=== PATIENT | male | born 1955 | race Caucasian/White ===

== ENCOUNTER 2018-02-03 05:48 | Inpatient (IN) | payer MEDICAID, OTHER ==
[~2018-02-03] VITALS: Ht 182.9 cm; Wt 93.2 kg
[~2018-02-03 05:48] MED LIST: FLUO-191 PO; FURO40 PO
[2018-02-03 06:03] LABS: GLUCOSE,POINT OF CARE 145 MG/DL (70-110)
[2018-02-03] MEDS ORDERED: FURO20 PO (06:10)
[2018-02-03] MEDS ORDERED: OXYC20 PO (06:10)
[2018-02-03 06:49] LABS: ANION GAP 19 mmol/L (8-16); CALCIUM, TOTAL 8.9 mg/dL (8.8-10.5); CARBON DIOXIDE 17 mmol/L (22-29); CHLORIDE 104 mmol/L (98-107); CREATININE 1.32 mg/dL (0.60-1.30); GLOMERULAR FILTR. RATE CALC 55 mL/min (>60); GLUCOSE,RANDOM 154 mg/dL (70-110); POTASSIUM 4.5 mmol/L (3.5-5.1); PROTHROMBIN TIME 20.7 SEC (9.4-11.6); SODIUM SERUM 140 mmol/L (136-145); UREA NITROGEN, BLOOD 16 mg/dL (7-18)
[2018-02-03 06:51] LABS: BASOPHILS % (AUTO) 0.4 % (0.0-2.0); EOSINOPHILS % (AUTO) 0.3 % (1.0-6.0); HEMATOCRIT 26.6 % (41-53); HEMOGLOBIN 8.8 g/dL (13.5-17.5); LYMPHOCYTES # (AUTO) 0.7 K/uL (1.0-4.8); LYMPHOCYTES % (AUTO) 11.8 % (22.0-44.0); MEAN CORPUSCULAR VOLUME 103 fL (80-100); MONOCYTES # (AUTO) 0.5 K/uL (0.1-1.0); MONOCYTES % (AUTO) 8.6 % (2.0-9.0); NEUTROPHILS # (AUTO) 4.7 K/uL (1.8-7.7); NEUTROPHILS % (AUTO) 78.9 % (40.0-70.0); RED BLOOD CELL COUNT(AUTO) 2.58 MIL/uL (4.50-5.90); RED CELL DISTRIBUTION WIDTH 16.9 % (11.5-14.5)
[2018-02-03 06:56] LABS: ACETAMINOPHEN 13 mcg/mL (10-30); ALANINE AMINOTRANSFERASE 24 U/L (12-78); ALBUMIN 4.3 g/dL (3.4-5.0); ALKALINE PHOSPHATASE 180 U/L (46-116); ASPARTATE AMINOTRANSFERASE 64 U/L (15-37); BILIRUBIN,TOTAL 11.1 mg/dL (0.1-1.0)
[2018-02-03 07:09] LABS: SALICYLATE < 2.8 mg/dL (2.8-20.0)
[2018-02-03] MEDS ORDERED: LACTULOSE 20 GM/30 ML SOLUTION UDCUP PO ONE (07:15)
[2018-02-03 07:18] LABS: PLATELET COUNT (AUTO) 114 K/uL (150-450)
[2018-02-03 08:10] LABS: AMPHET/METH SCREEN,URINE NEGATIVE (NEGATIVE); BARBITURATE SCREEN, URINE NEGATIVE (NEGATIVE); BENZODIAZEPINES SCREEN,URINE NEGATIVE (NEGATIVE); CANNABINOID SCREEN,URINE NEGATIVE (NEGATIVE); COCAINE SCREEN,URINE NEGATIVE (NEGATIVE); METHADONE SCREEN, URINE NEGATIVE (NEGATIVE); OPIATE SCREEN,URINE POSITIVE (NEGATIVE)
[2018-02-03 08:11] LABS: PHENCYCLIDINE SCREEN,URINE NEGATIVE (NEGATIVE)
[2018-02-03 08:19] VITALS: BP 152/81
[2018-02-03] MEDS ORDERED: HYDROCODONE/ACETAMINOPHEN 5-325 MG TABLET PO PRN (11:15)
[2018-02-03] MEDS ORDERED: BISACODYL 10 MG RECTAL RECTAL SUPPOSITORY PR PRN (11:15)
[2018-02-03] MEDS ORDERED: MAGNESIUM HYDROXIDE SUSPENSION 30 ML UDCUP PO PRN (11:15)
[2018-02-03] MEDS ORDERED: ZOLPIDEM TARTRATE 5 MG TABLET PO PRN (11:15)
[2018-02-03] MEDS: ONDANSETRON HCL 4 MG/2 ML VIAL IVP PRN ×3 (11:43→23:28)
[2018-02-03] MEDS ORDERED: MAGNESIUM SULFATE 2 GM, MVI, ADULT NO.1 WITH VIT K 10 ML, THIAMINE HCL 100 MG, FOLIC AC... IV ONE ×5 (12:15)
[2018-02-03 12:53] LABS: SALICYLATE < 2.8 mg/dL (2.8-20.0)
[2018-02-03 13:09] VITALS: BP 143/80
[2018-02-03 14:50] LABS: ACETAMINOPHEN < 2 mcg/mL (10-30)
[2018-02-03 17:40] VITALS: BP 137/72
[2018-02-03] MEDS: LACTULOSE 20 GM/30 ML SOLUTION UDCUP PO SCH (20:20)
[2018-02-03] MEDS: DOCUSATE SODIUM 100 MG CAPSULE PO SCH (20:20)
[2018-02-03 20:30] VITALS: BP 121/63
[2018-02-04] VITALS (11 sets, daily range): BP systolic 106–127; BP diastolic 55–72
[2018-02-04] MEDS: MORPHINE SULFATE 4 MG/ML SYRINGE IVP PRN ×3 (00:19→17:21)
[2018-02-04] MEDS: ONDANSETRON HCL 4 MG/2 ML VIAL IVP PRN ×3 (05:30→21:16)
[2018-02-04] MEDS: FUROSEMIDE 20 MG TABLET PO SCH (08:02)
[2018-02-04] MEDS: LACTULOSE 20 GM/30 ML SOLUTION UDCUP PO SCH ×2 (08:02→20:42)
[2018-02-04] MEDS: PANTOPRAZOLE SODIUM 40 MG DR TABLET PO SCH (08:02)
[2018-02-04] MEDS: DOCUSATE SODIUM 100 MG CAPSULE PO SCH ×2 (08:02→20:42)
[2018-02-04] MEDS ORDERED: CYANOCOBALAMIN 1,000 MCG/ML VIAL IM ONE (16:00)
[2018-02-04] MEDS ORDERED: LORazepam 2 MG TABLET PO PRN (16:00)
[2018-02-04] MEDS ORDERED: LOPERAMIDE HCL 2 MG CAPSULE PO PRN (16:00)
[2018-02-04] MEDS: THIAMINE HCL 100 MG TABLET PO SCH (20:42)
[2018-02-05] VITALS (8 sets, daily range): BP systolic 113–134; BP diastolic 56–76
[2018-02-05] MEDS: ONDANSETRON HCL 4 MG/2 ML VIAL IVP PRN (05:44)
[2018-02-05] MEDS ORDERED: LORazepam 2 MG TABLET PO PRN (07:00)
[2018-02-05] MEDS: FOLIC ACID 1 MG TABLET PO SCH (08:23)
[2018-02-05] MEDS: DOCUSATE SODIUM 100 MG CAPSULE PO SCH ×2 (08:24→21:56)
[2018-02-05] MEDS: THIAMINE HCL 100 MG TABLET PO SCH ×2 (08:24→21:56)
[2018-02-05] MEDS: SERTRALINE HCL 50 MG TABLET PO SCH (08:24)
[2018-02-05] MEDS: FUROSEMIDE 20 MG TABLET PO SCH (08:24)
[2018-02-05] MEDS: MULTIVITAMINS WITH MINERALS, THERAPEUTIC TABLET PO SCH (08:24)
[2018-02-05] MEDS: PANTOPRAZOLE SODIUM 40 MG DR TABLET PO SCH (08:25)
[2018-02-05] MEDS: LACTULOSE 20 GM/30 ML SOLUTION UDCUP PO SCH ×2 (08:25→21:56)
[2018-02-05] MEDS: LORazepam 2 MG TABLET PO SCH ×4 (08:25→21:55)
[2018-02-05] MEDS: ACETAMINOPHEN 325 MG TABLET PO PRN (21:55)
[2018-02-06 04:00] VITALS: BP 131/63
[2018-02-06] MEDS: ACETAMINOPHEN 325 MG TABLET PO PRN ×3 (05:29→13:00)
[2018-02-06 07:21] VITALS: BP 128/77
[2018-02-06] MEDS: LORazepam 2 MG TABLET PO SCH ×4 (07:51→20:03)
[2018-02-06] MEDS: FOLIC ACID 1 MG TABLET PO SCH (07:51)
[2018-02-06] MEDS: LACTULOSE 20 GM/30 ML SOLUTION UDCUP PO SCH ×2 (07:51→20:03)
[2018-02-06] MEDS: PANTOPRAZOLE SODIUM 40 MG DR TABLET PO SCH (07:52)
[2018-02-06] MEDS: FUROSEMIDE 20 MG TABLET PO SCH (07:52)
[2018-02-06] MEDS: MULTIVITAMINS WITH MINERALS, THERAPEUTIC TABLET PO SCH (07:52)
[2018-02-06] MEDS: SERTRALINE HCL 50 MG TABLET PO SCH (07:52)
[2018-02-06] MEDS: THIAMINE HCL 100 MG TABLET PO SCH ×2 (07:52→20:03)
[2018-02-06] MEDS: DOCUSATE SODIUM 100 MG CAPSULE PO SCH ×2 (07:53→20:03)
[2018-02-06 13:00] VITALS: BP 136/75
[2018-02-06 20:12] VITALS: BP 120/59
[2018-02-07] VITALS (7 sets, daily range): BP systolic 108–153; BP diastolic 53–76
[2018-02-07] MEDS ORDERED: LORazepam 1 MG TABLET PO PRN (07:00)
[2018-02-07] MEDS: FOLIC ACID 1 MG TABLET PO SCH (08:14)
[2018-02-07] MEDS: DOCUSATE SODIUM 100 MG CAPSULE PO SCH ×2 (08:14→20:09)
[2018-02-07] MEDS: PANTOPRAZOLE SODIUM 40 MG DR TABLET PO SCH (08:14)
[2018-02-07] MEDS: LACTULOSE 20 GM/30 ML SOLUTION UDCUP PO SCH ×2 (08:14→20:09)
[2018-02-07] MEDS: LORazepam 1 MG TABLET PO SCH ×3 (08:14→17:12)
[2018-02-07] MEDS: MULTIVITAMINS WITH MINERALS, THERAPEUTIC TABLET PO SCH (08:14)
[2018-02-07] MEDS: FUROSEMIDE 20 MG TABLET PO SCH (08:15)
[2018-02-07] MEDS: THIAMINE HCL 100 MG TABLET PO SCH ×2 (08:15→20:09)
[2018-02-07] MEDS: SERTRALINE HCL 50 MG TABLET PO SCH (08:17)
[2018-02-07] MEDS: ACETAMINOPHEN 325 MG TABLET PO PRN (08:19)
[2018-02-08] VITALS (18 sets, daily range): BP systolic 112–140; BP diastolic 61–79
[2018-02-08] MEDS: LORazepam 1 MG TABLET PO SCH (00:12)
[2018-02-08] MEDS ORDERED: LORazepam 1 MG TABLET PO PRN (07:00)
[2018-02-08] MEDS: FOLIC ACID 1 MG TABLET PO SCH (08:05)
[2018-02-08] MEDS: MULTIVITAMINS, THERAPEUTIC TABLET PO SCH (08:05)
[2018-02-08] MEDS: THIAMINE HCL 100 MG TABLET PO SCH ×2 (08:05→20:31)
[2018-02-08] MEDS: PANTOPRAZOLE SODIUM 40 MG DR TABLET PO SCH (08:05)
[2018-02-08] MEDS: DOCUSATE SODIUM 100 MG CAPSULE PO SCH ×2 (08:06→21:20)
[2018-02-08] MEDS: FUROSEMIDE 20 MG TABLET PO SCH (08:06)
[2018-02-08] MEDS: SERTRALINE HCL 50 MG TABLET PO SCH (08:06)
[2018-02-08] MEDS: LACTULOSE 20 GM/30 ML SOLUTION UDCUP PO SCH ×2 (08:06→21:20)
[2018-02-08 11:44] LABS: BASOPHILS % (AUTO) 1.1 % (0.0-2.0); EOSINOPHILS % (AUTO) 4.2 % (1.0-6.0); HEMOGLOBIN 7.1 g/dL (13.5-17.5); LYMPHOCYTES # (AUTO) 0.8 K/uL (1.0-4.8); LYMPHOCYTES % (AUTO) 25.1 % (22.0-44.0); MEAN CORPUSCULAR HEMOGLOBIN 35.5 pg (26.0-34.0); MEAN CORPUSCULAR HGB CONC 36.2 G/dL (31.0-37.0); MEAN CORPUSCULAR VOLUME 98 fL (80-100); MONOCYTES # (AUTO) 0.6 K/uL (0.1-1.0); MONOCYTES % (AUTO) 19.3 % (2.0-9.0); NEUTROPHILS # (AUTO) 1.5 K/uL (1.8-7.7); NEUTROPHILS % (AUTO) 50.3 % (40.0-70.0); RED CELL DISTRIBUTION WIDTH 15.9 % (11.5-14.5)
[2018-02-08 11:55] LABS: CALCIUM, TOTAL 8.9 mg/dL (8.8-10.5); CREATININE 1.34 mg/dL (0.60-1.30); POTASSIUM 3.7 mmol/L (3.5-5.1)
[2018-02-08 12:03] LABS: ALBUMIN 3.5 g/dL (3.4-5.0); BILIRUBIN,TOTAL 9.4 mg/dL (0.1-1.0); TOTAL PROTEIN, SERUM 6.5 g/dL (6.4-8.2)
[2018-02-08 12:29] LABS: HEMATOCRIT 19.6 % (41-53)
[2018-02-08 12:57] LABS: PLATELET COUNT (AUTO) 92 K/uL (150-450)
[2018-02-08] MEDS ORDERED: SODIUM CHLORIDE 0.9% 250 ML IV ONE ×2 (13:33→21:30)
[2018-02-08] MEDS: OCTREOTIDE ACETATE 500 MCG in DEXTROSE 5%-WATER 97.5 ML IV SCH (17:53)
[2018-02-08] MEDS ORDERED: SODIUM CHLORIDE 0.9% 200 ML ONE (17:54)
[2018-02-08] MEDS: PHYTONADIONE 10 MG/1 ML AMP SQ SCH (21:17)
[2018-02-08] MEDS: PANTOPRAZOLE SODIUM 80 MG in SODIUM CHLORIDE 0.9% 100 ML IV SCH (23:55)
[2018-02-09] MEDS: OCTREOTIDE ACETATE 500 MCG in DEXTROSE 5%-WATER 97.5 ML IV SCH (03:07)
[2018-02-09 04:53] VITALS: BP 127/67
[2018-02-09 07:08] VITALS: BP 128/67
[2018-02-09] MEDS: MULTIVITAMINS, THERAPEUTIC TABLET PO SCH (09:00)
[2018-02-09] MEDS: FOLIC ACID 1 MG TABLET PO SCH (09:00)
[2018-02-09] MEDS: DOCUSATE SODIUM 100 MG CAPSULE PO SCH ×2 (09:00→20:27)
[2018-02-09] MEDS: THIAMINE HCL 100 MG TABLET PO SCH ×2 (09:00→20:28)
[2018-02-09] MEDS: LACTULOSE 20 GM/30 ML SOLUTION UDCUP PO SCH ×2 (09:00→20:27)
[2018-02-09] MEDS: SERTRALINE HCL 50 MG TABLET PO SCH (09:00)
[2018-02-09] MEDS: FUROSEMIDE 20 MG TABLET PO SCH (09:00)
[2018-02-09] MEDS: MORPHINE SULFATE 4 MG/ML SYRINGE IVP PRN (09:17)
[2018-02-09] MEDS: PANTOPRAZOLE SODIUM 80 MG in SODIUM CHLORIDE 0.9% 100 ML IV SCH (10:35)
[2018-02-09] MEDS ORDERED: SODIUM CHLORIDE 0.9% 1,000 ML IV ONE ×2 (11:00)
[2018-02-09 13:05] LABS: BASOPHILS % (AUTO) 1.6 % (0.0-2.0); EOSINOPHILS % (AUTO) 6.3 % (1.0-6.0); HEMATOCRIT 21.3 % (41-53); HEMOGLOBIN 7.5 g/dL (13.5-17.5); LYMPHOCYTES # (AUTO) 1.2 K/uL (1.0-4.8); LYMPHOCYTES % (AUTO) 33.7 % (22.0-44.0); MEAN CORPUSCULAR HEMOGLOBIN 34.4 pg (26.0-34.0); MEAN CORPUSCULAR HGB CONC 35.4 G/dL (31.0-37.0); MEAN CORPUSCULAR VOLUME 97 fL (80-100); MONOCYTES # (AUTO) 0.4 K/uL (0.1-1.0); MONOCYTES % (AUTO) 12.7 % (2.0-9.0); NEUTROPHILS # (AUTO) 1.6 K/uL (1.8-7.7); NEUTROPHILS % (AUTO) 45.7 % (40.0-70.0); PLATELET COUNT (AUTO) 84 K/uL (150-450); RED BLOOD CELL COUNT(AUTO) 2.19 MIL/uL (4.50-5.90); RED CELL DISTRIBUTION WIDTH 18.7 % (11.5-14.5)
[2018-02-09 13:17] LABS: ALBUMIN 3.5 g/dL (3.4-5.0); BILIRUBIN,TOTAL 10.8 mg/dL (0.1-1.0); CALCIUM, TOTAL 8.4 mg/dL (8.8-10.5); CREATININE 1.31 mg/dL (0.60-1.30); POTASSIUM 4.2 mmol/L (3.5-5.1); TOTAL PROTEIN, SERUM 6.5 g/dL (6.4-8.2)
[2018-02-09 13:18] LABS: PROTHROMBIN TIME 20.6 SEC (9.4-11.6)
[2018-02-09 13:45] VITALS: BP 124/69
[2018-02-09 20:18] VITALS: BP 131/66
[2018-02-09] MEDS: PHYTONADIONE 10 MG/1 ML AMP SQ SCH (20:28)
[2018-02-09] MEDS: PANTOPRAZOLE SODIUM 40 MG/VIAL IVP SCH (20:29)
[2018-02-09] MEDS: RIFAXIMIN 550 MG TABLET PO SCH (21:00)
[2018-02-09 23:13] VITALS: BP 135/80
[2018-02-10 04:30] VITALS: BP 129/79
[2018-02-10] MEDS ORDERED: MIDAZOLAM HCL 2 MG/2 ML VIAL IVP ONE (05:39)
[2018-02-10] MEDS ORDERED: PROPOFOL 1% 20 ML VIAL IVP ONE (05:39)
[2018-02-10 07:07] VITALS: BP 120/70
[2018-02-10] MEDS: LACTULOSE 20 GM/30 ML SOLUTION UDCUP PO SCH (08:35)
[2018-02-10] MEDS: PANTOPRAZOLE SODIUM 40 MG/VIAL IVP SCH (08:35)
[2018-02-10] MEDS: FOLIC ACID 1 MG TABLET PO SCH (08:36)
[2018-02-10] MEDS: FUROSEMIDE 20 MG TABLET PO SCH (08:36)
[2018-02-10] MEDS: THIAMINE HCL 100 MG TABLET PO SCH (08:36)
[2018-02-10] MEDS: SERTRALINE HCL 50 MG TABLET PO SCH (08:36)
[2018-02-10] MEDS: MULTIVITAMINS, THERAPEUTIC TABLET PO SCH (08:36)
[2018-02-10] MEDS: DOCUSATE SODIUM 100 MG CAPSULE PO SCH (08:39)
[2018-02-10] MEDS: RIFAXIMIN 550 MG TABLET PO SCH (09:00)
[2018-02-10] MEDS: MORPHINE SULFATE 4 MG/ML SYRINGE IVP PRN ×2 (11:07→18:49)
[2018-02-10 11:17] VITALS: BP 121/74
[2018-02-10 15:54] VITALS: BP 124/60
[2018-02-10 16:15] LABS: BASOPHILS % (AUTO) 1.6 % (0.0-2.0); EOSINOPHILS % (AUTO) 5.5 % (1.0-6.0); HEMATOCRIT 21.7 % (41-53); HEMOGLOBIN 7.5 g/dL (13.5-17.5); LYMPHOCYTES # (AUTO) 0.9 K/uL (1.0-4.8); LYMPHOCYTES % (AUTO) 26.5 % (22.0-44.0); MEAN CORPUSCULAR HEMOGLOBIN 33.8 pg (26.0-34.0); MEAN CORPUSCULAR HGB CONC 34.6 G/dL (31.0-37.0); MEAN CORPUSCULAR VOLUME 98 fL (80-100); MONOCYTES # (AUTO) 0.6 K/uL (0.1-1.0); MONOCYTES % (AUTO) 17.2 % (2.0-9.0); NEUTROPHILS # (AUTO) 1.7 K/uL (1.8-7.7); NEUTROPHILS % (AUTO) 49.2 % (40.0-70.0); RED BLOOD CELL COUNT(AUTO) 2.23 MIL/uL (4.50-5.90); RED CELL DISTRIBUTION WIDTH 18.2 % (11.5-14.5)
[2018-02-10 16:29] LABS: ANION GAP 6 mmol/L (8-16); CALCIUM, TOTAL 8.4 mg/dL (8.8-10.5); CARBON DIOXIDE 28 mmol/L (22-29); CHLORIDE 103 mmol/L (98-107); CREATININE 1.06 mg/dL (0.60-1.30); GLOMERULAR FILTR. RATE CALC > 60 mL/min (>60); GLUCOSE,RANDOM 104 mg/dL (70-110); POTASSIUM 3.8 mmol/L (3.5-5.1); SODIUM SERUM 137 mmol/L (136-145); UREA NITROGEN, BLOOD 10 mg/dL (7-18)
[2018-02-10 16:32] LABS: PLATELET COUNT (AUTO) 79 K/uL (150-450)
[2018-02-10 16:35] LABS: ALANINE AMINOTRANSFERASE 22 U/L (12-78); ALBUMIN 3.4 g/dL (3.4-5.0); ALKALINE PHOSPHATASE 120 U/L (46-116); ASPARTATE AMINOTRANSFERASE 52 U/L (15-37); BILIRUBIN,TOTAL 10.8 mg/dL (0.1-1.0); TOTAL PROTEIN, SERUM 6.5 g/dL (6.4-8.2)
[2018-02-10 19:19] VITALS: BP 131/75
== END 2018-02-10 19:44 | DRG 812 ==
LOC: EMS 05:48 → 6N 07:42
PROVIDERS: ADMIT Internal Medicine; ATTEND Internal Medicine
PROC: 30233N1 Transfusion of Nonautologous Red Blood Cells into Peripheral Vein, Percutaneous Approach (ICD-10-PCS; principal; 2018-02-08)
PROC: 30233L1 Transfusion of Nonautologous Fresh Plasma into Peripheral Vein, Percutaneous Approach (ICD-10-PCS; 2018-02-08)
PROC: 30233K1 Transfusion of Nonautologous Frozen Plasma into Peripheral Vein, Percutaneous Approach (ICD-10-PCS; 2018-02-08)
PROC: 0DJ08ZZ Inspection of Upper Intestinal Tract, Via Natural or Artificial Opening Endoscopic (ICD-10-PCS; 2018-02-09)
DX: T40.2X2A Poisoning by other opioids, intentional self-harm, initial encounter (principal); D68.9 Coagulation defect, unspecified; K76.6 Portal hypertension; F33.2 Major depressive disorder, recurrent severe without psychotic features; D69.6 Thrombocytopenia, unspecified; I50.9 Heart failure, unspecified; K92.2 Gastrointestinal hemorrhage, unspecified; F10.239 Alcohol dependence with withdrawal, unspecified; K70.30 Alcoholic cirrhosis of liver without ascites; K72.90 Hepatic failure, unspecified without coma; B19.20 Unspecified viral hepatitis C without hepatic coma; D64.9 Anemia, unspecified; K31.89 Other diseases of stomach and duodenum; Y90.3 Blood alcohol level of 60-79 mg/100 ml; Z79.899 Other long term (current) drug therapy; Z72.89 Other problems related to lifestyle; Y92.098 Other place in other non-institutional residence as the place of occurrence of the external cause
CPT/HCPCS: 82306; 83036; 86850; 86900; 86901; 86920; 86927; 97116; 97162; 97167; 97530; 97535; 99285; C9113; G0480; G0481; J2250; J2270; J2354; J2405; J2704; J3411; J3420; J3430; J3475; J3490; J7030; J7050; J7060; P9016; P9017